=== PATIENT | female | born 1985 | race African-American/Black ===

== ENCOUNTER 2018-11-14 06:09 | Day surgery (SDC) | payer OTHER ==
[2018-11-13 15:05] VITALS: BMI 24.0
[2018-11-14 06:53] LABS: #Basophils 0.1 thou/uL (0.0-0.2); #Eosinphils 0.2 thou/uL (0.0-0.7); #Lymphocytes 2.1 thou/uL (1.20-3.40); #Monocytes 0.3 thou/uL (0.11-0.59); #Neutrophils 1.9 thou/uL (1.40-6.50); %Basophils 1.2 % (0.0-1.0); %Eosinophils 5.4 % (0.0-10.0); %Lymphocytes 45.4 % (21.0-51.0); %Monocytes 6.3 % (0.0-10.0); %Neutrophils 41.8 % (42.0-75.0); Hemoglobin 13.9 g/dL (12.0-16.0); Mean Corpuscular HGB CONC 33.7 g/dL (32.0-36.0); Mean Corpuscular Volume 89.1 fL (78.0-98.0); Mean Platelet Volume 7.3 fL (7.4-10.4); Platelet Count 225 thou/uL (130-400); Red Blood Cell (RBC) Count 4.62 mill/uL (4.20-5.40); White Blood Cell (WBC) Count 4.6 thou/uL (4.8-10.8)
[2018-11-14 06:58] LABS: BHCG - Serum Negative (NEGATIVE); Pregs Control Background? CLEAR/WHITE (CLR/WHITE); Pregs Control Bar Appear? YES (CONTROL BAR)
[2018-11-14] MEDS ORDERED: Fentanyl 100 MCG/2 ML VIAL ONE ×2 (07:01→08:20)
[2018-11-14] MEDS ORDERED: Bupivacaine HCl 0.5%/Epinephrine 1:200,000/PF 30 ml Vial ONE (07:08)
[2018-11-14] MEDS ORDERED: Lidocaine 2% PF 5 ML VIAL ONE (07:08)
[2018-11-14] MEDS ORDERED: Midazolam HCl 2 mg/2 ml Vial ONE (07:44)
--- NOTE | 2018-11-14 08:04 | HP ---
CHIEF COMPLAINT: Enlarging soft tissue mass of upper right arm. HISTORY: The patient is a 33-year-old female with an enlarging soft tissue mass of the left upper arm near the axilla. No pain. PAST MEDICAL HISTORY: Otherwise healthy. PAST SURGICAL HISTORY: None. MEDICATIONS: None. ALLERGIES: NO KNOWN DRUG ALLERGIES. SOCIAL HISTORY: No tobacco. No alcohol. FAMILY HISTORY: Unknown. PHYSICAL EXAMINATION: VITAL SIGNS: Weight 136. Height 64.5. Body mass index 23.05. GENERAL: Well-developed and well-nourished female, in no apparent distress. HEENT: Unremarkable. LUNGS: Clear. HEART: Regular rate and rhythm. ABDOMEN: Soft, nondistended, and nontender. EXTREMITIES: She has a 5 cm soft tissue mass in posterior left upper arm consistent with lipoma. ASSESSMENT: Probable lipoma, left upper arm. PLAN: Excisional biopsy. CONSENT: Discussed planned procedure as well as risk of bleeding, infection, recurrence of the lipoma. She understands and gives informed consent. Job ID: [id number]
--- NOTE | 2018-11-14 12:55 | OP ---
DATE OF PROCEDURE: 11/14/2018 PREOPERATIVE DIAGNOSIS: Lipoma, left upper shoulder. PROCEDURE PERFORMED: Excisional biopsy. INDICATIONS: A 33-year-old female with enlarging soft tissue mass of the left upper arm. FINDINGS: 5 x 4 x 1.5 cm partially intramuscular multilobular lipoma of the left upper posterior arm. DESCRIPTION OF PROCEDURE: After informed consent was obtained, the patient was taken to the operating room and given general endotracheal anesthesia. She was placed in the right lateral decubitus position. Her arm was prepped and draped in usual fashion. Local anesthesia infiltrated subcutaneously and deep. A longitudinal incision was performed. Subcu was divided sharply. The lipoma was dissected out. It had some lobules that were in their own capsules. These capsules were excised. Part of it was intramuscular. This was dissected out using blunt and sharp dissection. Then, the mass was removed. Hemostasis was achieved with electrocautery. Subcu was reapproximated with interrupted 2-0 Vicryl. Skin was closed with a running subcuticular 4-0 Rapide. Dermabond was applied. The patient tolerated the procedure well, transferred to Recovery in good condition. Sponge and needle count verified correct x2. Job ID: [id number]
[2018-11-14] MEDS ORDERED: Lidocaine 1% PF 5 ML VIAL ONE (16:11)
[2018-11-14] MEDS ORDERED: Glycopyrrolate 0.2 MG/ML 5 ML SYRINGE ONE (16:11)
[2018-11-14] MEDS ORDERED: Ondansetron PF 4 MG/2 ML Vial ONE (16:11)
[2018-11-14] MEDS ORDERED: Rocuronium Bromide 10 MG/ML (10ML VIAL) ONE (16:11)
[2018-11-14] MEDS ORDERED: Ketorolac Tromethamine 30 MG/ML VIAL ONE (16:11)
[2018-11-14] MEDS ORDERED: Dexamethasone 20 MG/5 ML VIAL ONE (16:11)
[2018-11-14] MEDS ORDERED: PROPOFOL 200 MG/20 ML VIAL ONE (16:11)
== END 2018-11-14 10:37 | disposition home or self-care (01) ==
LOC: SDC 06:09
PROVIDERS: ATTEND Surgery
PROC: 0KB60ZZ Excision of Left Shoulder Muscle, Open Approach (ICD-10-PCS; principal; 2018-11-14)
DX: D17.79 Benign lipomatous neoplasm of other sites (principal)
CPT/HCPCS: 36415; 84703; 85025; 88304; J0670; J0690; J1100; J1885; J2001; J2250; J2405; J2704; J3010